=== PATIENT | male | born 1950 | race Hispanic/Latino ===

== ENCOUNTER → 2017-11-13 | Outpatient (CLI) | payer MEDICARE ==
[2017-11-14 16:16] LABS: INR 1.37 (0.85-1.15); PROTHROMBIN TIME 14.3 SEC (9.6-11.6)
== END | disposition home or self-care (01) ==
LOC: LAB 10:15
PROVIDERS: ATTEND Internal Medicine
DX: C90.00 Multiple myeloma not having achieved remission (principal); G93.40 Encephalopathy, unspecified; I12.0 Hypertensive chronic kidney disease with stage 5 chronic kidney disease or end stage renal disease; N18.6 End stage renal disease; E87.2 Acidosis; G81.91 Hemiplegia, unspecified affecting right dominant side; J18.9 Pneumonia, unspecified organism; J91.8 Pleural effusion in other conditions classified elsewhere; J96.01 Acute respiratory failure with hypoxia; R78.81 Bacteremia
CPT/HCPCS: 36415; 85610